=== PATIENT | female | born 1960 | race African-American/Black ===

== ENCOUNTER 2016-07-06 18:23 | Emergency (ER) | payer SELFPAY ==
[~2016-07-06] VITALS: Ht 158.8 cm; Wt 66.7 kg
[2016-07-06 18:53] LABS: BASO # 0.1 x10^3/uL (0.0-0.2); BASO % 1 % (0-3); EOS % 2 % (0-3); HEMOGLOBIN 13.1 g/dL (12.0-15.5); LYMPH # 3.8 x10^3/uL (1.0-4.8); LYMPH % 42 % (24-48); MEAN CORPUSCULAR HEMOGLOBIN 31 pg (25-35); MEAN CORPUSCULAR HGB CONC 33 g/dL (31-37); MEAN CORPUSCULAR VOLUME 94 fL (79-100); MONO % 5 % (0-9); NEUT % 50 % (31-73); PLATELET COUNT 266 x10^3/uL (140-400); RED BLOOD COUNT 4.27 x10^6/uL (3.50-5.40)
[2016-07-06 19:06] LABS: CALCIUM 9.3 mg/dL (8.5-10.1); CREATININE 0.8 mg/dL (0.6-1.0); GFR 74.7; POTASSIUM 3.4 mmol/L (3.5-5.1)
[2016-07-06 19:12] LABS: ALBUMIN 3.7 g/dL (3.4-5.0); ALBUMIN/GLOBULIN RATIO 0.9 (1.0-1.7); TOTAL BILIRUBIN 0.3 mg/dL (0.2-1.0); TOTAL PROTEIN 7.9 g/dL (6.4-8.2)
[2016-07-06 19:32] VITALS: BP 149/69
[2016-07-06] MEDS ORDERED: PARO20TA55 PO (19:41)
--- NOTE | 2016-07-06 19:42 | PHYS DOC ---
Past Medical History Past Medical History: Asthma Past Surgical History: , Hysterectomy, Other Additional Past Surgical Histo: knee surgery Additional Information: 15 cigarettes per day Alcohol Use: None Drug Use: None Adult General Chief Complaint Chief Complaint: CHEST PAIN [facility] HPI 56-year-old female who is under a tremendous amount of stress at home secondary to the recent murder of her daughter and she is now caring for grandchildren. She states over the last 2 days she's had multiple bouts of what she describes as a panic attack. She states she has a hard time getting a deep breath and at times feels some palpitations and chest tightness. She denies any shortness of breath dyspnea on exertion nausea vomiting or diaphoresis. She denies taking anything to help with her anxiety. [] Review of Systems Review of Systems Constitutional: Denies fever or chills [] Eyes: Denies change in visual acuity, redness, or eye pain [] HENT: Denies nasal congestion or sore throat [] Respiratory: Denies cough or shortness of breath [] Cardiovascular: No additional information not addressed in HPI [] GI: Denies abdominal pain, nausea, vomiting, bloody stools or diarrhea [] : Denies dysuria or hematuria [] Musculoskeletal: Denies back pain or joint pain [] Integument: Denies rash or skin lesions [] Neurologic: Denies headache, focal weakness or sensory changes [] Endocrine: Denies polyuria or polydipsia [] Physical Exam Physical Exam Constitutional: Well developed, well nourished, no acute distress, non-toxic appearance. [] HENT: Normocephalic, atraumatic, bilateral external ears normal, oropharynx moist, no oral exudates, nose normal. [] Eyes: PERRLA, EOMI, conjunctiva normal, no discharge. [] Neck: Normal range of motion, no tenderness, supple, no stridor. [] Cardiovascular:Heart rate regular rhythm, no murmur [] Lungs & Thorax: Bilateral breath sounds clear to auscultation [] Abdomen: Bowel sounds normal, soft, no tenderness, no masses, no pulsatile masses. [] Skin: Warm, dry, no erythema, no rash. [] Back: No tenderness, no CVA tenderness. [] Extremities: No tenderness, no cyanosis, no clubbing, ROM intact, no edema. [] Neurologic: Alert and oriented X 3, normal motor function, normal sensory function, no focal deficits noted. [] Psychologic: Anxious [] Current Patient Data Vital Signs Vital Signs Date Time Temp Pulse Resp B/P Pulse Ox O2 Delivery O2 Flow Rate FiO2 07/06/16 18:25 98.3 80 16 157/84 99 Room Air 98.3 Lab Values Laboratory Tests Test 07/06/16 18:35 White Blood Count 9.0x10^3/uL (4.0-11.0) Red Blood Count 4.27x10^6/uL (3.50-5.40) Hemoglobin 13.1g/dL (12.0-15.5) Hematocrit 40.0% (36.0-47.0) Mean Corpuscular Volume 94fL (79-100) Mean Corpuscular Hemoglobin 31pg (25-35) Mean Corpuscular Hemoglobin Concent 33g/dL (31-37) Red Cell Distribution Width 13.0% (11.5-14.5) Platelet Count 266x10^3/uL (140-400) Neutrophils (%) (Auto) 50% (31-73) Lymphocytes (%) (Auto) 42% (24-48) Monocytes (%) (Auto) 5% (0-9) Eosinophils (%) (Auto) 2% (0-3) Basophils (%) (Auto) 1% (0-3) Neutrophils # (Auto) 4.5x10^3uL (1.8-7.7) Lymphocytes # (Auto) 3.8x10^3/uL (1.0-4.8) Monocytes # (Auto) 0.4x10^3/uL (0.0-1.1) Eosinophils # (Auto) 0.2x10^3/uL (0.0-0.7) Basophils # (Auto) 0.1x10^3/uL (0.0-0.2) Sodium Level 143mmol/L (136-145) Potassium Level 3.4mmol/L (3.5-5.1) L Chloride Level 106mmol/L (98-107) Carbon Dioxide Level 29mmol/L (21-32) Anion Gap 8 (6-14) Blood Urea Nitrogen 15mg/dL (7-20) Creatinine 0.8mg/dL (0.6-1.0) Estimated GFR (Cockcroft-Gault) 74.7 BUN/Creatinine Ratio 19 (6-20) Glucose Level 100mg/dL (70-99) H Calcium Level 9.3mg/dL (8.5-10.1) Total Bilirubin 0.3mg/dL (0.2-1.0) Aspartate Amino Transferase (AST) 23U/L (15-37) Alanine Aminotransferase (ALT) 25U/L (14-59) Alkaline Phosphatase 126U/L (46-116) H Troponin I Quantitative < 0.017ng/mL (0.000-0.055) Total Protein 7.9g/dL (6.4-8.2) Albumin 3.7g/dL (3.4-5.0) Albumin/Globulin Ratio 0.9 (1.0-1.7) L Laboratory Tests 07/06/16 18:35 Laboratory Tests 07/06/16 18:35 EKG EKG [EKG: Normal sinus rhythm rate of [address]-T changes] Radiology/Procedures Radiology/Procedures [Chest x-ray: Negative exam as interpreted by me] Course & Med Decision Making Course & Med Decision Making Pertinent Labs and Imaging studies reviewed. (See chart for details) [ED course: Evaluation reveals a 56-year-old anxious female in no significant distress. Her cardiac workup was unrevealing. I reassured the patient that I did not feel this was anything more serious and anxiety. Patient states she is open to trying something for her generalized anxiety. I will go and prescribed Paxil as an outpatient.] Dragon Disclaimer Dragon Disclaimer This electronic medical record was generated, in whole or in part, using a voice recognition dictation system. Departure Departure Impression: Primary Impression: Anxiety about health Disposition: HOME, SELF-CARE Condition: STABLE Referrals: NO PCP (PCP) Patient Instructions: Anxiety and Panic Attacks Additional Instructions: Thank you for allowing us to participate in your care today. Followup with your primary care physician in 3 days if your symptoms do not improve. Return to the emergency department you have any new or concerning findings. This should be evaluated by the primary care physician and any necessary consulting services for continued management within a few days after discharge. Return to emergency room if you have any new or concerning symptoms including but not limited to fever, chills, nausea, vomiting, intractable pain, any new rashes, chest pain, shortness of air, uncontrolled bleeding, difficulty breathing, and/or vision loss. You may have been prescribed medication that can change in your level of thinking and ability to operate machinery. These medications include hydrocodone and Ativan. Also, Benadryl has been known to do this as well. Be sure to check with your pharmacist and ask if the medications you've prescribed can affect your level of consciousness. I recommend not operating heavy machinery or driving while on medication such as these. Scripts Paroxetine Hcl (Paxil)20 Mg Tablet1 Tab PO DAILY ANXIETY #30 TAB Ref 5 Prov:CASEY MCRAE DO 07/06/16 CASEY MCRAE DO Jul 06, 2016 19:41
--- NOTE | 2016-07-06 23:03 | EKG ---
[facility] [address] [place] [address] Test Date: 2016-07-06 Test Time: 18:33:37 Pat Name: GRETEL ALEGRE Department: Room: Gender: F [employer]: : 1960 Requested By: CASEY MCRAE Order Number: [id number] Reading MD: Measurements Intervals [place] Rate: 80 P: 59 MD: 156 QRS: 40 QRSD: 80 T: 51 QT: 372 QTc: 433 Interpretive Statements SINUS RHYTHM QRS(T) CONTOUR ABNORMALITY CONSIDER ANTEROSEPTAL MYOCARDIAL DAMAGE POSSIBLY ABNORMAL ECG RI6.01 No previous ECG available for comparison
--- NOTE | 2016-07-07 08:08 | RAD ---
AP chest, 07/06/2016: History: Cough, chest pain Comparison is made to a study from 02/01/2005. The heart size and pulmonary vascularity are normal. There is mild tortuosity of the thoracic aorta. No pulmonary infiltrates are seen. There is no evidence of pleural fluid. IMPRESSION: No acute cardiopulmonary abnormality is detected.
== END 2016-07-06 19:51 | disposition home or self-care (01) ==
LOC: ER 18:23
DX: F41.9 Anxiety disorder, unspecified (principal); J45.909 Unspecified asthma, uncomplicated; F17.210 Nicotine dependence, cigarettes, uncomplicated; Z90.710 Acquired absence of both cervix and uterus
CPT/HCPCS: 36415; 71010; 80053; 84484; 85027; 93005; 99285-25

== ENCOUNTER 2016-10-15 14:06 | Emergency (ER) | payer SELFPAY ==
[~2016-10-15] VITALS: Ht 160 cm; Wt 63.5 kg
[~2016-10-15 14:06] MED LIST: PARO20TA99 PO
[2016-10-15 14:26] VITALS: BP 155/87
--- NOTE | 2016-10-15 14:46 | RAD ---
Indication fall, pain. AP oblique and lateral views of the left ankle were obtained. Just lateral to the talus and distal to the tip of the lateral malleolus is a small bone fragment which likely reflects a small cortical avulsion. There is soft tissue swelling over the lateral malleolus. No additional bony finding is seen. IMPRESSION: Probable minute cortical avulsion fracture
--- NOTE | 2016-10-15 15:05 | PHYS DOC ---
Past Medical History Past Medical History: Asthma Past Surgical History: , Hysterectomy, Other Additional Past Surgical Histo: knee surgery Additional Information: 1 PPD Alcohol Use: None Drug Use: None Adult General Chief Complaint Chief Complaint: ANKLE PROBLEM HPI HPI Patient is a 56 year old female presents to the emergency department with a history left ankle pain and discomfort after falling over grandson. Patient states she was running to close the door when she fell and twisted her left ankle. Pain is noted to the lateral ankle area. Swelling noted. No bruising or discoloration noted. Review of Systems Review of Systems Constitutional: Denies fever or chills [] Eyes: Denies change in visual acuity, redness, or eye pain [] HENT: Denies nasal congestion or sore throat [] Respiratory: Denies cough or shortness of breath [] Cardiovascular: No additional information not addressed in HPI [] GI: Denies abdominal pain, nausea, vomiting, bloody stools or diarrhea [] : Denies dysuria or hematuria [] Musculoskeletal: Denies back pain C/o left lateral ankle pain Integument: Denies rash or skin lesions [] Neurologic: Denies headache, focal weakness or sensory changes [] Endocrine: Denies polyuria or polydipsia [] Allergies Allergies Allergies Coded Allergies Type Severity Reaction Last Updated Verified Latex, Natural Rubber Allergy Severe "eats my skin" 10/15/16 Yes codeine Allergy Intermediate rash,heart beats fast 10/15/16 Yes Physical Exam Physical Exam Constitutional: Well developed, well nourished, no acute distress, non-toxic appearance. [] HENT: Normocephalic, atraumatic, bilateral external ears normal, oropharynx moist, no oral exudates, nose normal. [] Eyes: PERRLA, EOMI, conjunctiva normal, no discharge. [] Neck: Normal range of motion, no tenderness, supple, no stridor. [] Cardiovascular:Heart rate regular rhythm Lungs & Thorax: no respiratory distress Skin: Warm, dry, no erythema, no rash. [] Back: No tenderness Extremities: No tenderness, no cyanosis, no clubbing, ROM intact, no edema. [] Neurologic: Alert and oriented X 3, normal motor function, normal sensory function, no focal deficits noted. [] Psychologic: Affect normal, judgement normal, mood normal. [] Current Patient Data Vital Signs Vital Signs Date Time Temp Pulse Resp B/P (MAP) Pulse Ox O2 Delivery O2 Flow Rate FiO2 10/15/16 14:26 98.7 71 16 155/87 (109) 97 Room Air 98.7 EKG EKG [] Radiology/Procedures Radiology/Procedures [] Course & Med Decision Making Course & Med Decision Making Pertinent Labs and Imaging studies reviewed. (See chart for details) X-ray with probable minute cortical avulsion fracture. Patient will be placed in a posterior splint and crutches. She will be provided with orthopedic to followup with. Recommended ice packs on 20 minutes and off 20 minutes several times a day. Elevation as much as possible. Patient agrees with discharge instructions, treatment regimen and followup recommendations. Signs and symptoms to return to the emergency department has been provided. [] Dragon Disclaimer Dragon Disclaimer This electronic medical record was generated, in whole or in part, using a voice recognition dictation system. Departure Departure Impression: Primary Impression: Ankle fracture, left Disposition: 01 HOME, SELF-CARE Condition: STABLE Referrals: UNKNOWN PCP NAME (PCP) HUMERA DELGADO MD Patient Instructions: Ankle Fracture, [id number] Additional Instructions: X-ray reveals a probable minute cortical avulsion fracture Keep the splint in place Use the crutches for ambulation, no weight bearing to the left foot/ankle Ice packs on 20 minutes and off 20 minutes several times a day Elevation as much as possible Followup with orthopedic in 1 week Return to emergency department as needed for signs and symptoms that become worse. Splinting Splinting : Location: left ankle Hand-Made Type: orthoglass Splint: posterior short leg splint Pre-Proc Neuro Vasc Exam: normal Post-Proc Neuro Vasc Exam: normal GRIFFIN LEACH APRN Oct 15, 2016 15:05
== END 2016-10-15 15:25 | disposition home or self-care (01) ==
LOC: ER 14:06
DX: S82.892A Other fracture of left lower leg, initial encounter for closed fracture (principal); J45.909 Unspecified asthma, uncomplicated; F17.200 Nicotine dependence, unspecified, uncomplicated; Z91.040 Latex allergy status; Z88.5 Allergy status to narcotic agent; Z90.710 Acquired absence of both cervix and uterus; W18.39XA Other fall on same level, initial encounter; Y93.02 Activity, running; Y92.89 Other specified places as the place of occurrence of the external cause; Y99.8 Other external cause status
CPT/HCPCS: 29515; 73610; 99284-25

== ENCOUNTER 2017-07-31 17:15 | Emergency (ER) | payer SELFPAY ==
[2017-07-31] MEDS: DIPHTH,PERTUSS(ACELL),TET TOX 0.5 ML DISP.SYRIN. VAX IM (18:09)
== END 2017-07-31 18:27 | disposition home or self-care (01) ==
LOC: ER 17:15
DX: S61.031A Puncture wound without foreign body of right thumb without damage to nail, initial encounter (principal); J45.909 Unspecified asthma, uncomplicated; Z90.710 Acquired absence of both cervix and uterus; Z88.5 Allergy status to narcotic agent; Z91.040 Latex allergy status; Z91.048 Other nonmedicinal substance allergy status; W26.8XXA Contact with other sharp object(s), not elsewhere classified, initial encounter; Y93.89 Activity, other specified; Y92.89 Other specified places as the place of occurrence of the external cause; Y99.8 Other external cause status
CPT/HCPCS: 90471; 90715; 99283

== ENCOUNTER 2017-08-26 19:48 | Emergency (ER) | payer SELFPAY | END 2017-08-26 21:01 | disposition home or self-care (01) | LOC: ER 21:01 | DX: S89.90XA Unspecified injury of unspecified lower leg, initial encounter (principal); J45.909 Unspecified asthma, uncomplicated; Z90.710 Acquired absence of both cervix and uterus; Z88.5 Allergy status to narcotic agent; Z91.040 Latex allergy status; X50.1XXA Overexertion from prolonged static or awkward postures, initial encounter; Y93.89 Activity, other specified; Y92.89 Other specified places as the place of occurrence of the external cause; Y99.8 Other external cause status | CPT/HCPCS: 99283 ==

== ENCOUNTER 2018-03-24 23:26 | Emergency (ER) | payer SELFPAY ==
[~2018-03-24] VITALS: Ht 160 cm; Wt 67.1 kg
[~2018-03-24 23:26] MED LIST changes: +HYDR-3164 PO; +SULF1TAB24 PO
[2018-03-24 23:28] VITALS: BP 156/85
[2018-03-25] MEDS ORDERED: predniSONE 10 MG TABLET PO ONE
[2018-03-25] MEDS ORDERED: IPRATRPIUM/ALBUTEROL 0.5/2.5MG 3 ML NEBU. NEB ONE
--- NOTE | 2018-03-25 00:20 | RAD ---
Chest PA and lateral 03/24/2018. Reason for exam: Cough and congestion. Comparison is made with a study done 07/06/2016. No infiltrate or effusion is seen. The heart may be mildly enlarged, but appears similar to the prior exam. Pulmonary vascularity is not congested. IMPRESSION: No acute findings. Electronically signed by: Walter Calderon Jr., MD (03/25/2018 12:16 AM) [facility]
[2018-03-25] MEDS ORDERED: BENZ100C PO (00:24)
[2018-03-25] MEDS ORDERED: DOXY100C2 PO (00:24)
--- NOTE | 2018-03-25 00:25 | PHYS DOC ---
Past Medical History Past Medical History: Asthma Past Surgical History: , Hysterectomy, Other Additional Past Surgical Histo: knee surgery Additional Information: 0.5 PPD Alcohol Use: Occasionally Drug Use: None Adult General Chief Complaint Chief Complaint: Congestion HPI HPI Patient is a 57 year old female who presents with congestion times a few days with thick green/yellow sinus drainage with facial tenderness. The patient also complains of shortness of breath and rib pain from coughing. She denies fevers, sore throat or earaches. She has not taken any medications at home to treat her symptoms. Review of Systems Review of Systems Constitutional: Denies fever or chills [] Eyes: Denies change in visual acuity, redness, or eye pain [] HENT: See history of present illness Respiratory: See history of present illness Cardiovascular: No additional information not addressed in HPI [] GI: Denies abdominal pain, nausea, vomiting, bloody stools or diarrhea [] : Denies dysuria or hematuria [] Musculoskeletal: Denies back pain or joint pain [] Integument: Denies rash or skin lesions [] Neurologic: Denies headache, focal weakness or sensory changes [] Endocrine: Denies polyuria or polydipsia [] All other systems were reviewed and found to be within normal limits, except as documented in this note. Current Medications Current Medications Current Medications Medications (Trade) Dose Ordered Sig/Wisam Start Time Stop Time Status Last Admin Dose Admin Albuterol/ Ipratropium (Duoneb) 3 ml 1X ONCE 03/25/18 00:00 03/25/18 00:01 DC 03/25/18 00:08 3 ML Prednisone (Prednisone) 50 mg 1X ONCE 03/25/18 00:00 03/25/18 00:01 DC 03/24/18 23:55 50 MG Allergies Allergies Allergies Coded Allergies Type Severity Reaction Last Updated Verified Latex, Natural Rubber Allergy Severe "eats my skin" 10/15/16 Yes codeine Allergy Intermediate rash,heart beats fast 10/15/16 Yes Physical Exam Physical Exam Constitutional: Well developed, well nourished, no acute distress, non-toxic appearance. [] HENT: Normocephalic, atraumatic, bilateral tympanic membranes normal, oropharynx moist, no oral exudates, nares are erythematous, maxillary tenderness with Eyes: PERRLA, EOMI, conjunctiva normal, no discharge. [] Neck: Normal range of motion, no tenderness, supple, no stridor. [] Cardiovascular:Heart rate regular rhythm, no murmur [] Lungs & Thorax: Bilateral breath sounds decreased Abdomen: Bowel sounds normal, soft, no tenderness, no masses, no pulsatile masses. [] Skin: Warm, dry, no erythema, no rash. [] Back: No tenderness, no CVA tenderness. [] Extremities: No tenderness, no cyanosis, no clubbing, ROM intact, no edema. [] Neurologic: Alert and oriented X 3, normal motor function, normal sensory function, no focal deficits noted. [] Psychologic: Affect normal, judgement normal, mood normal. [] Current Patient Data Vital Signs Vital Signs Date Time Temp Pulse Resp B/P (MAP) Pulse Ox O2 Delivery O2 Flow Rate FiO2 03/25/18 00:07 98 Room Air 03/24/18 23:28 99.1 94 18 156/85 (108) 99.1 EKG EKG [] Radiology/Procedures Radiology/Procedures [] PATIENT: GRETEL ALEGRE ACCOUNT: [id number] : 1960 LOCATION: ER AGE: 57 SEX: F EXAM STATUS: REG ER ORD. PHYSICIAN: LAMBERT GIRALDO APRN REASON: cough PROCEDURE: CHEST PA & LATERAL Chest PA and lateral 03/24/2018. Reason for exam: Cough and congestion. Comparison is made with a study done 07/06/2016. No infiltrate or effusion is seen. The heart may be mildly enlarged, but appears similar to the prior exam. Pulmonary vascularity is not congested. IMPRESSION: No acute findings. Electronically signed by: Letty Vazquez Jr., MD (03/25/2018 12:16 AM) [facility] DICTATED and SIGNED BY: LETTY VAZQUEZ Jr, MD DATE: 03/25/18 0015 Course & Med Decision Making Course & Med Decision Making Pertinent Labs and Imaging studies reviewed. (See chart for details) []The patient was given prednisone and a breathing treatment in the emergency department for resolution of her symptoms. Dragon Disclaimer Dragon Disclaimer This electronic medical record was generated, in whole or in part, using a voice recognition dictation system. Departure Departure Impression: Primary Impression: Cough Additional Impressions: Rib pain Sinusitis Disposition: 01 HOME, SELF-CARE Condition: STABLE Referrals: NO PCP (PCP) Patient Instructions: Costochondritis, Cough, Adult, Sinusitis Additional Instructions: Take medications as directed. Follow-up with your primary care provider in 4 days if not improving or return to the emergency department if worsening. Scripts Doxycycline Hyclate (DOXYCYCLINE HYCLATE) 100 Mg Capsule 1 CAP PO BID for sinusitis, #20 CAP Prov: LAMBERT GIRALDO APRN 03/25/18 Benzonatate (TESSALON PERLE) 100 Mg Capsule 1 CAP PO TID for cough, #30 CAP Prov: LAMBERT GIRALDO APRN 03/25/18 Problem Qualifiers LAMBERT GIRALDO APRN Mar 25, 2018 00:25
== END 2018-03-25 00:45 | disposition home or self-care (01) ==
LOC: ER 23:26
DX: J32.9 Chronic sinusitis, unspecified (principal); R07.81 Pleurodynia; J45.909 Unspecified asthma, uncomplicated; F17.200 Nicotine dependence, unspecified, uncomplicated; Z91.040 Latex allergy status; Z88.5 Allergy status to narcotic agent
CPT/HCPCS: 71046; 94640; 99283; J7512; J7620

== ENCOUNTER 2018-06-16 12:45 | Emergency (ER) | payer SELFPAY ==
[~2018-06-16] VITALS: Ht 157.5 cm; Wt 68.0 kg
[~2018-06-16 12:45] MED LIST changes: +BENZ100C PO; +DOXY100C2 PO
[2018-06-16 13:15] VITALS: BP 159/79
[2018-06-16] MEDS ORDERED: CLOB15CR TP (13:47)
--- NOTE | 2018-06-16 13:49 | PHYS DOC ---
Past Medical History Past Medical History: Asthma Past Surgical History: , Hysterectomy, Other Additional Past Surgical Histo: knee surgery Alcohol Use: Occasionally Drug Use: None Adult General Chief Complaint Chief Complaint: LOWER EXT PAIN HPI HPI Patient is a 58 year old female who presents with ON her lower extremities times one week. The patient is been seen by her primary care was started on antibiotics. She states that she also has a bump on her earlobe that is smaller. She denies fever or any known injury. Review of Systems Review of Systems Constitutional: Denies fever or chills [] Eyes: Denies change in visual acuity, redness, or eye pain [] HENT: Denies nasal congestion or sore throat [] Respiratory: Denies cough or shortness of breath [] Cardiovascular: No additional information not addressed in HPI [] GI: Denies abdominal pain, nausea, vomiting, bloody stools or diarrhea [] : Denies dysuria or hematuria [] Musculoskeletal: Denies back pain or joint pain [] Integument: See history of present illness Neurologic: Denies headache, focal weakness or sensory changes [] Endocrine: Denies polyuria or polydipsia [] All other systems were reviewed and found to be within normal limits, except as documented in this note. Allergies Allergies Allergies Coded Allergies Type Severity Reaction Last Updated Verified Latex, Natural Rubber Allergy Severe "eats my skin" 10/15/16 Yes codeine Allergy Intermediate rash,heart beats fast 10/15/16 Yes Physical Exam Physical Exam Constitutional: Well developed, well nourished, no acute distress, non-toxic appearance. [] Cardiovascular:Heart rate regular rhythm, no murmur [] Lungs & Thorax: Bilateral breath sounds clear to auscultation [] Abdomen: Bowel sounds normal, soft, no tenderness, no masses, no pulsatile masses. [] Skin: There are 4 indurated areas to the lower leg with erythema that are consistent with bedbug bites, she has a similar bite to her earlobe, no sign of secondary infection Back: No tenderness, no CVA tenderness. [] Extremities: No tenderness, no cyanosis, no clubbing, ROM intact, no edema. [] Neurologic: Alert and oriented X 3, normal motor function, normal sensory function, no focal deficits noted. [] Psychologic: Affect normal, judgement normal, mood normal. [] Current Patient Data Vital Signs Vital Signs Date Time Temp Pulse Resp B/P (MAP) Pulse Ox O2 Delivery O2 Flow Rate FiO2 06/16/18 13:15 98.8 99 18 159/79 (105) 95 Room Air 98.8 EKG EKG [] Radiology/Procedures Radiology/Procedures [] Course & Med Decision Making Course & Med Decision Making Pertinent Labs and Imaging studies reviewed. (See chart for details) The patient is been given a steroid cream to help with itching. Dragon Disclaimer Dragon Disclaimer This electronic medical record was generated, in whole or in part, using a voice recognition dictation system. Departure Departure Impression: Primary Impression: Skin infection Additional Impression: Insect bites Disposition: HOME, SELF-CARE Condition: STABLE Referrals: NO PCP (PCP) Patient Instructions: Bedbugs, Skin Infections Additional Instructions: Check your mattress and furniture for bed bugs. Use the cream as directed. Take your antibiotics as directed by your primary care provider. If worsening return to the emergency department. Scripts Clobetasol Propionate (CLOBETASOL PROPIONATE) 15 Gm Cream..g. 1 SOPHIE TP BID for itching, #30 GM 1 Refill Prov: LAMBERT GIRALDO APRN 06/16/18 Problem Qualifiers LAMBERT GIRALDO APRN Jun 16, 2018 13:49
== END 2018-06-16 14:04 | disposition home or self-care (01) ==
LOC: ER 12:45
DX: S80.861A Insect bite (nonvenomous), right lower leg, initial encounter (principal); L08.89 Other specified local infections of the skin and subcutaneous tissue; J45.909 Unspecified asthma, uncomplicated; Z98.890 Other specified postprocedural states; Z90.710 Acquired absence of both cervix and uterus; Z91.040 Latex allergy status; Z88.5 Allergy status to narcotic agent; W57.XXXA Bitten or stung by nonvenomous insect and other nonvenomous arthropods, initial encounter; Y93.89 Activity, other specified; Y92.89 Other specified places as the place of occurrence of the external cause; Y99.8 Other external cause status
CPT/HCPCS: 99283

== ENCOUNTER 2021-08-15 09:52 | Emergency (ER) | payer MEDICAID ==
[~2021-08-15] VITALS: Ht 160 cm; Wt 67.7 kg
[~2021-08-15 09:52] MED LIST changes: +CLOB15CR TP; -DOXY100C2 PO; +DOXY100C3 PO
[2021-08-15 10:52] VITALS: BP 152/75
--- NOTE | 2021-08-15 16:21 | PHYS DOC ---
Past Medical History Past Medical History: Asthma Past Surgical History: , Hysterectomy, Other Additional Past Surgical Histo: knee surgery,NASAL Smoking Status: Current Every Day Smoker Additional Information: 0.5 PPD Alcohol Use: None Drug Use: None General Adult EDM: Chief Complaint: OTHER COMPLAINTS HPI: HPI: 61 yo F, pmhx alopecia, presents with 3 days of top of scalp soreness. no hheaadche. Recently had a weave done 3 days ago and she felt that it was pulling the hair on the top of her scalp too tightly so she had to removed however she is still feeling soreness over the top scalp area. No rash. No bleeding. No new shampoo/soaps, contact detergents. Review of Systems: Review of Systems: Constitutional: Denies fever or chills. [] Eyes: Denies change in visual acuity. [] HENT: +scalp soreness; Denies nasal congestion or sore throat. [] Respiratory: Denies cough or shortness of breath. [] Cardiovascular: Denies chest pain or edema. [] GI: Denies abdominal pain, nausea, vomiting, bloody stools or diarrhea. [] : Denies dysuria. [] Musculoskeletal: Denies back pain or joint pain. [] Integument: Denies rash. [] Neurologic: Denies headache, focal weakness or sensory changes. [] Heart Score: C/O Chest Pain: No Risk Factors: Risk Factors: DM, Current or recent (<one month) smoker, HTN, HLP, family history of CAD, obesity. Risk Scores: Score 0 - 3: 2.5% MACE over next 6 weeks - Discharge Home Score 4 - 6: 20.3% MACE over next 6 weeks - Admit for Clinical Observation Score 7 - 10: 72.7% MACE over next 6 weeks - Early Invasive Strategies Allergies: Allergies: Allergies Coded Allergies Type Severity Reaction Last Updated Verified Latex, Natural Rubber Allergy Severe "eats my skin" 10/15/16 Yes codeine Allergy Intermediate rash,heart beats fast 10/15/16 Yes Physical Exam: PE: Constitutional: Well developed, well nourished, no acute distress, non-toxic appearance. [] HENT: +alopecia, unremarkable scalp with no edema/erythema/rash. Top of scalp minimally tender; Normocephalic, atraumatic, bilateral external ears normal, oropharynx moist, no oral exudates, nose normal. [] Eyes: PERRLA, EOMI, conjunctiva normal, no discharge. [] Neck: Normal range of motion, no tenderness, supple, no stridor. [] Cardiovascular:Heart rate regular rhythm, no murmur [] Lungs & Thorax: Bilateral breath sounds clear to auscultation [] Abdomen: Bowel sounds normal, soft, no tenderness, no masses, no pulsatile masses. [] Skin: Warm, dry, no erythema, no rash. [] Back: No tenderness, no CVA tenderness. [] Extremities: No tenderness, no cyanosis, no clubbing, ROM intact, no edema. [] Neurologic: Alert and oriented X 3, normal motor function, normal sensory function, no focal deficits noted. [] Psychologic: Affect normal, judgement normal, mood normal. [] Current Patient Data: Vital Signs: Vital Signs Date Time Temp Pulse Resp B/P (MAP) Pulse Ox O2 Delivery O2 Flow Rate FiO2 08/15/21 10:52 98.2 75 18 152/75 (100) 98 Room Air 98.2 EKG: EKG: [] Radiology/Procedures: Radiology/Procedures: [] Course & Med Decision Making: Course & Med Decision Making Pertinent Labs and Imaging studies reviewed. (See chart for details) Additional Social History: PMD from non-affiliated facility. Patient Lives at home. Family History: Non-pertinent to today's complaint. Nursing Notes Reviewed Previous Medical Records requested via [facility] Web: Reviewed by me. EMERGENCY DEPARTMENT COURSE/ MEDICAL DECISION MAKING: I examined the patient, evaluated and addressed patient's chief complaint. Likely scalp soreness after getting a weave that was too tight. No signs of rash, cellulitis, hematoma, or fungal infection. No headache or neuro deficits. Recommended ice or tylenol/motrin as needed. Stable for dc home with routine pmd f/u. The patient understands that todays Emergency Department evaluation does not represent a comprehensive medical workup, and it is impossible to diagnose all possible illnesses from a single Emergency Department visit. The patient verbalized understanding that it is absolutely necessary to have follow-up with regular primary care physician within 1-2 days for more detailed workup and continued exam. I explained the findings and plan to the patient, who expressed verbal understanding and agreed with plan for discharge and follow up. The patient was given after care instructions and welcomed to return to the ED for re-evaluation in 8-12 hours, especially for any new or worsening symptoms. Patient's blood pressure was elevated (>120/80) but appears stable without evidence of end organ damage, malignant hypertension, hypertensive emergency or urgency. The patient was counseled about the risks of hypertension and urged to pursue outpatient monitoring and therapy within a week with their primary care physician. The patient was stable at the time of discharge. DIAGNOSTIC IMPRESSION: 1. scalp soreness DISPOSITION: Disposition: Discharge Home. Condition: Improved Follow-Up: PMD Prescriptions: None Return to the Emergency Department for new or worsening symptoms. Dragon Disclaimer: Dragon Disclaimer: This electronic medical record was generated, in whole or in part, using a voice recognition dictation system. Departure Departure Impression: Primary Impression: Alopecia Additional Impression: Scalp pain Disposition: 01 HOME / SELF CARE / HOMELESS Condition: STABLE Additional Instructions: Please follow up with your primary care provider. EDU NORIEGA MD August 15, 2021 16:20
== END 2021-08-15 11:30 | disposition home or self-care (01) ==
LOC: ER 09:52
DX: L65.9 Nonscarring hair loss, unspecified (principal); J45.909 Unspecified asthma, uncomplicated; F17.200 Nicotine dependence, unspecified, uncomplicated; Z91.040 Latex allergy status; Z88.5 Allergy status to narcotic agent
CPT/HCPCS: 99281